=== PATIENT | female | born 1980 | race African-American/Black ===

== ENCOUNTER 2018-05-04 14:49 | Outpatient (CLI) | payer BC ==
--- NOTE | 2018-05-04 16:17 | RAD ---
LUMBOSACRAL SPINE TWO VIEWS: HISTORY: Low back pain for 10 years. COMPARISON: None. FINDINGS: Two views of the lumbosacral spine show grade 2 anterolisthesis of L5 on S1. The vertebral bodies de monstrate normal height. Osteophytes are seen at the thoracolumbar junction. IMPRESSION: Grade 2 spondylolisthesis of L5 on S1. POS: [facility]
== END 2018-05-04 14:50 | disposition home or self-care (01) ==
LOC: BICRAD 14:49
PROVIDERS: ATTEND Specialist
DX: M54.5 Low back pain (principal); M43.17 Spondylolisthesis, lumbosacral region
CPT/HCPCS: 72100

== ENCOUNTER 2020-09-06 13:32 | Outpatient (CLI) | payer BC | END 2020-09-06 13:33 | disposition home or self-care (01) | LOC: BICRAD 13:32 | PROVIDERS: ATTEND Specialist | DX: M54.5 Low back pain (principal); M43.17 Spondylolisthesis, lumbosacral region | CPT/HCPCS: 72100 ==

== ENCOUNTER 2020-10-16 10:18 | Outpatient (CLI) | payer BC | END 2020-10-16 10:19 | disposition home or self-care (01) | LOC: BICULT 10:18 | PROVIDERS: ATTEND Specialist | DX: N63.20 Unspecified lump in the left breast, unspecified quadrant (principal) ==